=== PATIENT | female | born 1955 | race Caucasian/White ===

== ENCOUNTER → 2018-05-18 | Outpatient (CLI) | payer OTHER | LOC: M.ULTRA 13:44 | DX: M79.89 Other specified soft tissue disorders (principal); M79.661 Pain in right lower leg; M79.662 Pain in left lower leg; D68.51 Activated protein C resistance; R60.0 Localized edema; R71.8 Other abnormality of red blood cells; R58 Hemorrhage, not elsewhere classified ==

== ENCOUNTER 2021-02-14 09:29 | Emergency (ER) | payer OTHER ==
[~2021-02-14] VITALS: Ht 160 cm; Wt 77.1 kg
[2021-02-14] MEDS ORDERED: OMEPRAZOLE 20 M20 M1 PO (09:39)
[2021-02-14 09:58] LABS: ABSOLUTE BASOPHILS 0.1 thou/uL (0.0-0.2); ABSOLUTE EOSINOPHILS 0.7 thou/uL (0.0-0.7); ABSOLUTE LYMPHOCYTES 2.9 thou/uL (0.8-5.3); ABSOLUTE MONOCYTES 0.6 thou/uL (0.0-1.2); ABSOLUTE NEUTROPHILS 3.7 thou/uL (1.6-8.1); BASOPHILS 1.2 %; EOSINOPHILS 8.8 %; HEMATOCRIT 47.2 % (37.0-47.0); HEMOGLOBIN 15.3 gm/dL (12.0-15.0); LYMPHOCYTES 36.1 %; MCH 29.5 pg (26.0-34.0); MCHC 32.5 g/dL (28.0-37.0); MCV 90.8 fL (80.0-100.0); MONOCYTES 7.1 %; MPV 9.5 fl. (7.2-11.1); NUCLEATED RBCS 0 /100WBC; PLATELET COUNT* 335 thou/uL (150-400); POLYS 46.8 %; RBC 5.19 mil/uL (4.20-5.00); RDW-CV 13.7 % (10.5-14.5)
[2021-02-14 10:19] LABS: CALCIUM 9.1 mg/dL (8.5-10.1); POTASSIUM 3.9 mmol/L (3.5-5.1)
[2021-02-14 10:23] LABS: ALBUMIN 3.8 g/dL (3.4-5.0); MAGNESIUM 2.2 mg/dL (1.8-2.4); TOTAL BILIRUBIN 0.4 mg/dL (<0.1-1.0); TOTAL PROTEIN 7.4 g/dL (6.4-8.2)
[2021-02-14] MEDS ORDERED: FLEXERIL PO (10:47)
[2021-02-14 11:00] VITALS: BP 145/72
--- NOTE | 2021-02-17 10:34 | EKG ---
[place] [address] ELECTROCARDIOGRAM REPORT Name: LORI DELAROSA Room: [facility]#: [id number] Admission: 02/14/21 Attend Phys: Discharge: 02/14/21 Date of : 57 Date of Service: 02/14/21 0953 Report #: [id number] THIS REPORT FOR: //name// [facility] ED Test Date: 2021-02-14 Test Time: 09:53:36 Pat Name: LORI DELAROSA Department: Room: Gender: F [employer]: CD : [id number] Requested By: Evan Ramos Order Number: [id number] MD: Lake Hanks Measurements Intervals [place] Rate: 72 P: -6 CT: 160 QRS: 28 QRSD: 88 T: 48 QT: 384 QTc: 421 Interpretive Statements Sinus rhythm Abnormal R-wave progression, early transition No previous ECG available for comparison Electronically Signed On 02-17-2021 10:34:28 CDT by Lake Hanks [email or web address] <ELECTRONICALLY SIGNED> By: Lake Hanks MD, [facility] 02/17/21 1034 0953 0953 Lake Hanks MD, [facility] /EPI
== END 2021-02-14 11:00 | disposition home or self-care (01) ==
LOC: M.ERS 09:29
PROVIDERS: Emergency Medicine Emergency Medical Services
DX: R07.89 Other chest pain (principal); Z90.710 Acquired absence of both cervix and uterus; Z88.1 Allergy status to other antibiotic agents; Z88.2 Allergy status to sulfonamides; V89.2XXA Person injured in unspecified motor-vehicle accident, traffic, initial encounter; Y93.89 Activity, other specified; Y92.89 Other specified places as the place of occurrence of the external cause; Y99.8 Other external cause status